=== PATIENT | female | born 1980 | race American Indian/Alaskan Native ===

== ENCOUNTER 2018-01-04 15:41 | Emergency (ER) | payer SELFPAY ==
[2018-01-04 15:57] VITALS: BP 114/70
[2018-01-04 17:54] LABS: Bilirubin,Urine NEG (Negative); Blood,Urine NEG (Negative); Color,Urine Yellow (Yellow); Mucus,Urine FEW /HPF; Protein,Urine <15 mg/dL mg/dL (Negative)
[2018-01-04 17:56] LABS: HCG Qualitative,Urine Negative (Negative)
--- NOTE | 2018-01-04 20:03 | Emergency Department Report ---
ED Dysuria HPI - HPI Chief Complaint: Abdominal Pain Stated Complaint: UTI Time Seen by Provider: 01/04/18 19:31 Duration: 3 Days Location of Discomfort: Suprapubic Severity: Moderate Symptoms: Dysuria: Yes, Frequency: Yes, Suprapubic Pain: Yes, Flank Pain: No, Fever: No, Hematuria: Yes, Abdominal Pain: No, Previous UTI's: No ED Review of Systems ROS: Stated complaint: UTI Other details as noted in HPI Comment: All other systems reviewed and negative ED Past Medical Hx - Past Medical History Hx Diabetes: No Hx Asthma: No - Surgical History Past Surgical History?: Yes Additional Surgical History: - Social History Smoking Status: Never Smoker Substance Use Type: None - Medications Home Medications: Home Medications Medication Instructions Recorded Confirmed Last Taken Type Nitrofurantoin Monohyd/M-Cryst 100 mg PO BID #14 capsule 01/04/18 Unknown Rx [Macrobid 100 mg Capsule] Phenazopyridine [Pyridium] 100 mg PO TID #12 tab 01/04/18 Unknown Rx traMADol [Ultram] 50 mg PO Q6HR PRN #14 tablet 01/04/18 Unknown Rx Dysuria Exam - Exam General: Vital signs noted. No distress. Alert and acting appropriately. Exam: Yes Moist Mucous Membranes, Yes Abdominal Tenderness (suprapubic without rebound or gaurding), No CVA Tenderness, No Rigidity or Guarding Exam: Patient is alert and oriented 3. Lungs clear to auscultation. Patient is no acute distress. Skin is normal. Labs: Lab Results 01/04/18 Range/Units Unknown Urine Color Yellow (Yellow) Urine Turbidity Clear (Clear) Urine pH 6.0 (5.0-7.0) Ur Specific [place] 1.019 (1.003-1.030) Urine Protein <15 mg/dl (Negative) mg/dL Urine Glucose (UA) Neg (Negative) mg/dL Urine Ketones Neg (Negative) mg/dL Urine Blood Neg (Negative) Urine Nitrite Neg (Negative) Urine Bilirubin Neg (Negative) Urine Urobilinogen 2.0 (<2.0) mg/dL Ur Leukocyte Esterase Tr (Negative) Urine WBC (Auto) 18.0 H (0.0-6.0) /HPF Urine RBC (Auto) 4.0 (0.0-6.0) /HPF U Epithel Cells (Auto) 1.0 (0-13.0) /HPF Urine Mucus Few /HPF Urine HCG, Qual Negative (Negative) ED Course Vital Signs 01/04/18 15:45 Temperature 98.5 F Pulse Rate 78 Respiratory 18 Rate Blood Pressure 114/70 O2 Sat by Pulse 99 Oximetry Critical care attestation.: If time is entered above; I have spent that time in minutes in the direct care of this critically ill patient, excluding procedure time. ED Disposition Clinical Impression: Acute cystitis Qualifiers: Hematuria presence: with hematuria Qualified Code(s): N30.01 - Acute cystitis with hematuria Disposition: TO HOME OR SELFCARE Is pt being admited?: No Condition: Stable Instructions: Abdominal Pain (ED), Urinary Tract Infection in Women (ED) Prescriptions: Nitrofurantoin Monohyd/M-Cryst [Macrobid 100 mg Capsule] 100 mg PO BID #14 capsule Phenazopyridine [Pyridium] 100 mg PO TID #12 tab traMADol [Ultram] 50 mg PO Q6HR PRN #14 tablet PRN Reason: Pain Referrals: PRIMARY CARE, [Primary Care Provider] - 3-5 Days
== END 2018-01-04 20:14 | disposition home or self-care (01) ==
LOC: EDBD 15:41 → ED 15:41
DX: N30.00 Acute cystitis without hematuria (principal)
CPT/HCPCS: 81001; 81025; 99283

== ENCOUNTER 2019-04-02 01:11 | Emergency (ER) | payer OTHER ==
--- NOTE | 2019-04-02 02:23 | XRay Report ---
PROCEDURE: XR CHEST ROUTINE 2V TECHNIQUE: PA and lateral chest radiographs were obtained. HISTORY: productive cough chest tightness COMPARISONS: None. FINDINGS: The cardiomediastinal silhouette appears normal. The lungs are clear. The bones and soft tissues are unremarkable. IMPRESSION: No evidence of acute cardiopulmonary disease. This document is electronically signed by Shanta Finch MD., April 02 2019 02:22:09 AM ET
--- NOTE | 2019-04-02 04:15 | Emergency Department Report ---
ED General Adult HPI - General Chief complaint: Sore Throat Stated complaint: THROAT AND CHEST PAIN Time Seen by Provider: 04/02/19 02:48 Source: patient Mode of arrival: Ambulatory Limitations: No Limitations - History of Present Illness Initial comments: Patient is a 38-year-old female who presents the emergency room with complaints of a sore throat that began 3 days ago. she denies any pain with swallowing. She denies any fever. She has also had a cough with mucus production. She denies any congestion, rhinorrhea, or ear pain. she denies any past medical history, allergies medications or daily medications. She denies any sick contacts. [facility] march 28. - Related Data Previous Rx's Medication Instructions Recorded Last Taken Type Nitrofurantoin Monohyd/M-Cryst 100 mg PO BID #14 capsule 01/04/18 Unknown Rx [Macrobid 100 mg Capsule] Phenazopyridine [Pyridium] 100 mg PO TID #12 tab 01/04/18 Unknown Rx traMADol [Ultram] 50 mg PO Q6HR PRN #14 tablet 01/04/18 Unknown Rx Azithromycin [Zithromax Z-SAPNA] 250 mg PO DAILY 5 Days #6 tablet 04/02/19 Unknown Rx Benzonatate [Tessalon Perles] 100 mg PO Q8HR PRN #20 capsule 04/02/19 Unknown Rx Allergies Allergy/AdvReac Type Severity Reaction Status Date / Time No Known Allergies Allergy Unverified 01/04/18 15:58 ED Review of Systems ROS: Stated complaint: THROAT AND CHEST PAIN Other details as noted in HPI Comment: All other systems reviewed and negative ED Past Medical Hx - Past Medical History Previous Medical History?: No Hx Diabetes: No Hx Asthma: No - Surgical History Past Surgical History?: Yes Additional Surgical History: - Social History Smoking Status: Never Smoker - Medications Home Medications: Home Medications Medication Instructions Recorded Confirmed Last Taken Type Nitrofurantoin Monohyd/M-Cryst 100 mg PO BID #14 capsule 01/04/18 Unknown Rx [Macrobid 100 mg Capsule] Phenazopyridine [Pyridium] 100 mg PO TID #12 tab 01/04/18 Unknown Rx traMADol [Ultram] 50 mg PO Q6HR PRN #14 tablet 01/04/18 Unknown Rx Azithromycin [Zithromax Z-SAPNA] 250 mg PO DAILY 5 Days #6 tablet 04/02/19 Unknown Rx Benzonatate [Tessalon Perles] 100 mg PO Q8HR PRN #20 capsule 04/02/19 Unknown Rx ED Physical Exam - General Limitations: No Limitations General appearance: alert, in no apparent distress - Head Head exam: Present: atraumatic, normocephalic - Eye Eye exam: Present: normal appearance, PERRL - ENT ENT exam: Present: mucous membranes moist, other (one small exudate present on the left tonsil, no posterior oropharynx erythema, no tonsillar hypertrophy, uvula is midline ) - Respiratory Respiratory exam: Present: normal lung sounds bilaterally. Absent: respiratory distress, wheezes, rales, rhonchi, stridor, chest wall tenderness, accessory muscle use, decreased breath sounds, prolonged expiratory - Cardiovascular Cardiovascular Exam: Present: regular rate, normal rhythm, normal heart sounds. Absent: systolic murmur, diastolic murmur, rubs, gallop - Neurological Exam Neurological exam: Present: alert, oriented X3 - Psychiatric Psychiatric exam: Present: normal affect, normal mood - Skin Skin exam: Present: warm, dry, intact ED Course Vital Signs 04/02/19 04/02/19 01:34 05:00 Temperature 98.2 F Pulse Rate 73 59 L Respiratory 20 18 Rate Blood Pressure 122/73 Blood Pressure 116/74 [Left] O2 Sat by Pulse 100 98 Oximetry ED Medical Decision Making - Lab Data Lab Results 04/02/19 Range/Units 01:45 Group A Strep Rapid Negative (Negative) - Radiology Data Radiology results: report reviewed Fluoro Time In Minutes: PROCEDURE: XR CHEST ROUTINE 2V TECHNIQUE: PA and lateral chest radiographs were obtained. HISTORY: productive cough chest tightness COMPARISONS: None. FINDINGS: The cardiomediastinal silhouette appears normal. The lungs are clear. The bones and soft tissues are unremarkable. IMPRESSION: No evidence of acute cardiopulmonary disease. This document is electronically signed by Atul Finch MD., April 02 2019 02:22:09 AM ET Transcribed By: GUILLAUME Dictated By: ATUL FINCH MD Electronically Authenticated By: ATUL FINCH MD Signed Date/Time: 04/02/19 0223 - Medical Decision Making Patient is a 38-year-old female who presents the emergency room with complaints of a sore throat that began 3 days ago. she denies any pain with swallowing. She denies any fever. She has also had a cough with mucus production. She denies any congestion, rhinorrhea, or ear pain. she denies any past medical history, allergies medications or daily medications. She denies any sick contacts. [facility] march 28. VSS. on exam: one small exudate present on the left tonsil, no posterior oropharynx erythema, no tonsillar hypertrophy, uvula is midline, lungs are clear BL no w/r/r. CXR: No evidence of acute cardiopulmonary disease. rapid strep is negative. pt given prescription for zpak for pharyngitis/bronchitis and tessalon perles. advised to please take medication as prescribed. May use warm salt water gargles for sore throat. Follow-up with primary care doctor the next 2-3 days. Return to the emergency room for any new or worsening symptoms. Drink plenty of water. - Differential Diagnosis strep throat, tonsillitis, URI, PNA, viral syndrome Critical care attestation.: If time is entered above; I have spent that time in minutes in the direct care of this critically ill patient, excluding procedure time. ED Disposition Clinical Impression: Cough Pharyngitis Qualifiers: Pharyngitis/tonsillitis etiology: unspecified etiology Qualified Code(s): J02.9 - Acute pharyngitis, unspecified Disposition: - TO HOME OR SELFCARE Is pt being admited?: No Does the pt Need Aspirin: No Condition: Stable Instructions: Pharyngitis (ED), Acute Bronchitis (ED) Additional Instructions: Please take medication as prescribed. May use warm salt water gargles for sore throat. Follow-up with primary care doctor the next 2-3 days. Return to the emergency room for any new or worsening symptoms. Drink plenty of water. Prescriptions: Benzonatate [Tessalon Perles] 100 mg PO Q8HR PRN #20 capsule PRN Reason: Cough Azithromycin [Zithromax Z-SAPNA] 250 mg PO DAILY 5 Days #6 tablet Referrals: MATTIE WOODALL MD [Primary Care Provider] - 2-3 Days Forms: Work/School Release Form(ED) Time of Disposition: 04:14 Print Language: LAO
[2019-04-02 05:31] VITALS: BP 116/74
== END 2019-04-02 05:00 | disposition home or self-care (01) ==
LOC: ED 01:11
DX: J02.9 Acute pharyngitis, unspecified (principal); R05 Cough; Z79.899 Other long term (current) drug therapy
CPT/HCPCS: 71046; 87116; 87430; 93005; 93010; 99284

== ENCOUNTER 2020-11-10 14:18 | Emergency (ER) | payer SELFPAY ==
[2020-11-10 14:28] VITALS: BP 114/80
[2020-11-10] MEDS ORDERED: METOCLOPRAMIDE 10 MG TAB PO ONE (14:55)
[2020-11-10] MEDS ORDERED: diphenhydrAMINE 25 MG CAP PO ONE (14:55)
[2020-11-10] MEDS ORDERED: BUTALB/ACETAMINOPHEN/CAFFEINE TAB PO ONE (14:55)
[2020-11-10 15:39] LABS: Bilirubin,Urine NEG (Negative); Blood,Urine NEG (Negative); Color,Urine Yellow (Yellow); Mucus,Urine 2+ /HPF; Protein,Urine <15 mg/dL mg/dL (Negative); Urobilinogen,Urine < 2.0 mg/dL (<2.0)
[2020-11-10 15:43] LABS: HCG Qualitative,Urine Negative (Negative)
--- NOTE | 2020-11-10 16:16 | Emergency Department Report ---
ED General Adult HPI - General Chief complaint: Urogenital-Female Stated complaint: UTI/HEADACHE Time Seen by Provider: 11/10/20 14:31 Source: patient Mode of arrival: Ambulatory Limitations: No Limitations - History of Present Illness Initial comments: pt is a 40 yo female who presents to the ED with c/o a headache around the head in the distribution of a band that began three days ago. she denies any fall or injury. she denies any vision changes, numbness, weakness, gait disturbance, speech disturbance, fever, n/v/d. she states she believes she may have a UTI as her urine has been darker for a week. she denies dysuria, abd pain, abnormal vaginal discharge. denies allergies to meds. she has been taking ibuprofen with some improvement Severity scale (0 -10): 7 - Related Data Previous Rx's Medication Instructions Recorded Last Taken Type Nitrofurantoin Monohyd/M-Cryst 100 mg PO BID #14 capsule 01/04/18 Unknown Rx [Macrobid 100 mg Capsule] Phenazopyridine [Pyridium] 100 mg PO TID #12 tab 01/04/18 Unknown Rx traMADoL [Ultram] 50 mg PO Q6HR PRN #14 tablet 01/04/18 Unknown Rx Azithromycin [Zithromax Z-SAPNA] 250 mg PO DAILY 5 Days #6 tablet 04/02/19 Unknown Rx Benzonatate [Tessalon Perles] 100 mg PO Q8HR PRN #20 capsule 04/02/19 Unknown Rx Butalb/Acetaminophen/Caffeine 1 cap PO Q8HR PRN #10 cap 11/10/20 Unknown Rx [Fioricet 50-300-40 mg CAP] Allergies Allergy/AdvReac Type Severity Reaction Status Date / Time No Known Allergies Allergy Unverified 01/04/18 15:58 ED Review of Systems ROS: Stated complaint: UTI/HEADACHE Other details as noted in HPI Comment: All other systems reviewed and negative ED Past Medical Hx - Past Medical History Previous Medical History?: No Hx Diabetes: No Hx Asthma: No - Surgical History Past Surgical History?: Yes Additional Surgical History: - Social History Smoking Status: Never Smoker Substance Use Type: None - Medications Home Medications: Home Medications Medication Instructions Recorded Confirmed Last Taken Type Nitrofurantoin Monohyd/M-Cryst 100 mg PO BID #14 capsule 01/04/18 Unknown Rx [Macrobid 100 mg Capsule] Phenazopyridine [Pyridium] 100 mg PO TID #12 tab 01/04/18 Unknown Rx traMADoL [Ultram] 50 mg PO Q6HR PRN #14 tablet 01/04/18 Unknown Rx Azithromycin [Zithromax Z-SAPNA] 250 mg PO DAILY 5 Days #6 tablet 04/02/19 Unknown Rx Benzonatate [Tessalon Perles] 100 mg PO Q8HR PRN #20 capsule 04/02/19 Unknown Rx Butalb/Acetaminophen/Caffeine 1 cap PO Q8HR PRN #10 cap 11/10/20 Unknown Rx [Fioricet 50-300-40 mg CAP] ED Physical Exam - General Limitations: No Limitations General appearance: alert, in no apparent distress - Head Head exam: Present: atraumatic, normocephalic - Eye Eye exam: Present: normal appearance, PERRL, EOMI. Absent: periorbital swelling, periorbital tenderness Pupils: Present: normal accommodation - ENT ENT exam: Present: mucous membranes moist - Neck Neck exam: Present: normal inspection, full ROM. Absent: meningismus - Respiratory Respiratory exam: Present: normal lung sounds bilaterally. Absent: respiratory distress, wheezes, rales, rhonchi, stridor, chest wall tenderness, accessory muscle use, decreased breath sounds, prolonged expiratory - Cardiovascular Cardiovascular Exam: Present: regular rate, normal rhythm, normal heart sounds. Absent: systolic murmur, diastolic murmur, rubs, gallop - Neurological Exam Neurological exam: Present: alert, oriented X3, CN II-XII intact, normal gait. Absent: motor sensory deficit - Psychiatric Psychiatric exam: Present: normal affect, normal mood - Skin Skin exam: Present: warm, dry, intact ED Course Vital Signs 11/10/20 14:27 Temperature 98.9 F Pulse Rate 86 Respiratory 18 Rate Blood Pressure 114/80 O2 Sat by Pulse 100 Oximetry ED Medical Decision Making - Lab Data Lab Results 11/10/20 Range/Units 15:28 Urine Color Yellow (Yellow) Urine Turbidity Clear (Clear) Urine pH 5.0 (5.0-7.0) Ur Specific [place] 1.024 (1.003-1.030) Urine Protein <15 mg/dl (Negative) mg/dL Urine Glucose (UA) Neg (Negative) mg/dL Urine Ketones Neg (Negative) mg/dL Urine Blood Neg (Negative) Urine Nitrite Neg (Negative) Urine Bilirubin Neg (Negative) Urine Urobilinogen < 2.0 (<2.0) mg/dL Ur Leukocyte Esterase Neg (Negative) Urine WBC (Auto) 1.0 (0.0-6.0) /HPF Urine RBC (Auto) 1.0 (0.0-6.0) /HPF U Epithel Cells (Auto) 2.0 (0-13.0) /HPF Urine Mucus 2+ /HPF Urine HCG, Qual Negative (Negative) - Medical Decision Making pt is a 40 yo female who presents to the ED with c/o a headache around the head in the distribution of a band that began three days ago. she denies any fall or injury. she denies any vision changes, numbness, weakness, gait disturbance, speech disturbance, fever, n/v/d. she states she believes she may have a UTI as her urine has been darker for a week. she denies dysuria, abd pain, abnormal vaginal discharge. denies allergies to meds. she has been taking ibuprofen with some improvement. Vitals are normal. Patient has no neuro deficits on exam, no meningeal signs, she denies any thunderclap headache. Symptoms to she is describing sounds most consistent with a tension headache. UA is within normal limits. Urine is negative. Patient given Fioricet, Reglan, Benadryl and headache completely improved and she was feeling much better ready go home. Patient given prescription for Fioricet. Advised patient please take medication as prescribed. increase your water intake. follow up with a primary care doctor. return to the emergency room for any new or worsening symptoms. Critical care attestation.: If time is entered above; I have spent that time in minutes in the direct care of this critically ill patient, excluding procedure time. ED Disposition Clinical Impression: Urinary frequency, Dark urine Headache Qualifiers: Headache type: unspecified Headache chronicity pattern: acute headache Intractability: not intractable Qualified Code(s): R51.9 - Headache, unspecified Disposition: DC-01 TO HOME OR SELFCARE Is pt being admited?: No Does the pt Need Aspirin: No Condition: Stable Instructions: Tension Headache, Adult, [id number] Additional Instructions: please take medication as prescribed. increase your water intake. follow up with a primary care doctor. return to the emergency room for any new or worsening symptoms. Prescriptions: Butalb/Acetaminophen/Caffeine [Fioricet 50-300-40 mg CAP] 1 cap PO Q8HR PRN #10 cap PRN Reason: headache Referrals: PRIMARY CAREMD [Primary Care Provider] - 2-3 Days CONCEPCION ZEPEDA MD [Staff Physician] - 2-3 Days [facility] [Provider Group] - 2-3 Days Forms: Work/School Release Form(ED) Time of Disposition: 16:15 Print Language: AZERI
== END 2020-11-10 17:19 | disposition home or self-care (01) ==
LOC: ED 14:18
DX: R35.0 Frequency of micturition (principal); R51.9 Headache, unspecified; R82.998 Other abnormal findings in urine; Z79.899 Other long term (current) drug therapy; Z98.890 Other specified postprocedural states
CPT/HCPCS: 81001; 81025; 99283

== ENCOUNTER 2021-06-18 20:07 | Emergency (ER) | payer BC ==
--- NOTE | 2021-06-18 22:29 | Emergency Department Report ---
ED General Adult HPI - General Chief complaint: Chest Pain Stated complaint: CHEST PAIN Time Seen by Provider: 06/18/21 22:01 Source: patient Mode of arrival: Ambulatory Limitations: No Limitations - History of Present Illness Initial comments: Patient presents to the emergency department with a chief complaint of chest pain has been present for the last 6 to 7 days. Patient states the pain has been continuous in nature but states it became worse today. She states the pain sometimes radiates into her left breast but other than that there is no radia tion. Patient describes the pain is sharp in nature and denies shortness of breath or abdominal pain. Patient denies being a smoker or being on control. Patient denies history of early MIs in her family. -: Sudden, days(s) (6-7) Location: chest Radiation: other (At times to left breast) Severity scale (0 -10): 2 Quality: sharp Consistency: constant Improves with: none Worsens with: none Associated Symptoms: denies other symptoms Treatments Prior to Arrival: none - Related Data Previous Rx's Medication Instructions Recorded Last Taken Type Nitrofurantoin Monohyd/M-Cryst 100 mg PO BID #14 capsule 01/04/18 Unknown Rx [Macrobid 100 mg Capsule] Phenazopyridine [Pyridium] 100 mg PO TID #12 tab 01/04/18 Unknown Rx traMADoL [Ultram] 50 mg PO Q6HR PRN #14 tablet 01/04/18 Unknown Rx Azithromycin [Zithromax Z-SAPNA] 250 mg PO DAILY 5 Days #6 tablet 04/02/19 Unknown Rx Benzonatate [Tessalon Perles] 100 mg PO Q8HR PRN #20 capsule 04/02/19 Unknown Rx Butalb/Acetaminophen/Caffeine 1 cap PO Q8HR PRN #10 cap 11/10/20 Unknown Rx [Fioricet 50-300-40 mg CAP] Allergies Allergy/AdvReac Type Severity Reaction Status Date / Time No Known Allergies Allergy Unverified 01/04/18 15:58 ED Review of Systems ROS: Stated complaint: CHEST PAIN Other details as noted in HPI Comment: All other systems reviewed and negative Constitutional: denies: chills, fever Eyes: denies: eye pain, eye discharge, vision change ENT: denies: ear pain, throat pain Respiratory: denies: cough, shortness of breath, wheezing Cardiovascular: chest pain. denies: palpitations Endocrine: no symptoms reported Gastrointestinal: denies: abdominal pain, nausea, diarrhea Genitourinary: denies: urgency, dysuria, discharge Musculoskeletal: denies: back pain, joint swelling, arthralgia Skin: denies: rash, lesions Neurological: denies: headache, weakness, paresthesias Psychiatric: denies: anxiety, depression Hematological/Lymphatic: denies: easy bleeding, easy bruising ED Past Medical Hx - Past Medical History Previous Medical History?: No Hx Diabetes: No Hx Asthma: No - Surgical History Past Surgical History?: Yes Additional Surgical History: - Social History Smoking Status: Never Smoker Substance Use Type: None - Medications Home Medications: Home Medications Medication Instructions Recorded Confirmed Last Taken Type Nitrofurantoin Monohyd/M-Cryst 100 mg PO BID #14 capsule 01/04/18 Unknown Rx [Macrobid 100 mg Capsule] Phenazopyridine [Pyridium] 100 mg PO TID #12 tab 01/04/18 Unknown Rx traMADoL [Ultram] 50 mg PO Q6HR PRN #14 tablet 01/04/18 Unknown Rx Azithromycin [Zithromax Z-SAPNA] 250 mg PO DAILY 5 Days #6 tablet 04/02/19 Unknown Rx Benzonatate [Tessalon Perles] 100 mg PO Q8HR PRN #20 capsule 04/02/19 Unknown Rx Butalb/Acetaminophen/Caffeine 1 cap PO Q8HR PRN #10 cap 11/10/20 Unknown Rx [Fioricet 50-300-40 mg CAP] ED Physical Exam - General Limitations: No Limitations General appearance: alert, in no apparent distress - Head Head exam: Present: atraumatic, normocephalic - Eye Eye exam: Present: normal appearance, PERRL, EOMI - ENT ENT exam: Present: mucous membranes moist - Neck Neck exam: Present: normal inspection - Respiratory Respiratory exam: Present: normal lung sounds bilaterally. Absent: respiratory distress - Cardiovascular Cardiovascular Exam: Present: regular rate, normal rhythm. Absent: systolic murmur, diastolic murmur, rubs, gallop - GI/Abdominal GI/Abdominal exam: Present: soft, normal bowel sounds. Absent: distended, tenderness - Extremities Exam Extremities exam: Present: normal inspection - Back Exam Back exam: Present: normal inspection - Neurological Exam Neurological exam: Present: alert, oriented X3, CN II-XII intact. Absent: motor sensory deficit - Psychiatric Psychiatric exam: Present: normal affect, normal mood - Skin Skin exam: Present: warm, dry, intact, normal color. Absent: rash ED Course Vital Signs 06/18/21 06/18/21 06/18/21 20:40 20:46 21:00 Pulse Rate 72 73 76 Respiratory 19 22 21 Rate Blood Pressure 109/64 106/68 O2 Sat by Pulse 100 100 100 Oximetry 06/18/21 06/18/21 06/18/21 21:16 21:30 21:46 Pulse Rate 73 76 70 Respiratory 22 23 22 Rate Blood Pressure 109/64 111/64 111/64 O2 Sat by Pulse 100 100 100 Oximetry 06/18/21 06/18/21 06/18/21 22:00 22:16 22:30 Pulse Rate 73 78 70 Respiratory 24 15 20 Rate Blood Pressure 107/67 111/64 107/67 O2 Sat by Pulse 100 100 100 Oximetry 06/18/21 06/18/21 06/18/21 22:46 23:00 23:16 Pulse Rate Respiratory Rate Blood Pressure 107/67 100/60 105/56 O2 Sat by Pulse 100 100 100 Oximetry 06/18/21 06/18/21 23:30 23:46 Pulse Rate Respiratory Rate Blood Pressure 105/56 105/56 O2 Sat by Pulse 100 100 Oximetry ED Medical Decision Making - Lab Data Result diagrams: 06/18/21 22:47 06/18/21 22:47 - EKG Data -: EKG Interpreted by [place] EKG shows normal: sinus rhythm Rate: normal - Radiology Data Radiology results: report reviewed - Medical Decision Making Laboratory values and imaging discussed with the patient and need for follow-up with primary care Critical care attestation.: If time is entered above; I have spent that time in minutes in the direct care of this critically ill patient, excluding procedure time. ED Disposition Clinical Impression: Nonspecific chest pain Disposition: 01 HOME / SELF CARE / HOMELESS Is pt being admited?: No Does the pt Need Aspirin: No Condition: Stable Instructions: Nonspecific Chest Pain, Adult Additional Instructions: Return if worse Referrals: CONCEPCION ZEPEDA MD [Staff Physician] - 3-5 Days Forms: Work/School Release Form(ED) Time of Disposition: 02:03
--- NOTE | 2021-06-18 22:49 | XRay Report ---
CHEST 2 VIEWS INDICATION / CLINICAL INFORMATION: chest pain. COMPARISON: None available. FINDINGS: SUPPORT DEVICES: None. HEART / MEDIASTINUM: No significant abnormality. LUNGS / PLEURA: No significant pulmonary or pleural abnormality. No pneumothorax. ADDITIONAL FINDINGS: No significant additional findings. IMPRESSION: 1. No acute findings. Signer Name: Rhett Abreu MD Signed: 06/18/2021 10:44 PM Workstation Name: [id number]
[2021-06-18 23:25] LABS: Basophils # (Auto) 0.1 K/mm3 (0.0-0.1); Eosinophils # (Auto) 0.2 K/mm3 (0.0-0.4); Eosinophils % (Auto) 3.9 % (0.0-4.3); Hematocrit 22.4 % (30.3-42.9); Hemoglobin 6.6 gm/dl (10.1-14.3); Lymphocytes # (Auto) 1.9 K/mm3 (1.2-5.4); Lymphocytes % (Auto) 37.8 % (13.4-35.0); Mean Corpuscular HGB Conc 30 % (30-34); Monocytes # (Auto) 0.5 K/mm3 (0.0-0.8); Monocytes % (Auto) 9.5 % (0.0-7.3); Platelet Count 221 K/mm3 (140-440); Red Blood Count 3.53 M/mm3 (3.65-5.03); Red Cell Distribution Width 19.5 % (13.2-15.2)
[2021-06-18 23:26] LABS: Mean Corpuscular Volume 63 fl (79-97)
[2021-06-18 23:53] LABS: Alanine Aminotransferase 20 units/L (7-56); Blood Urea Nitrogen 7 mg/dL (7-17); Calcium 8.3 mg/dL (8.4-10.2); Hemolysis Index 0
[2021-06-18 23:55] LABS: BUN/Creatinine Ratio 10
--- NOTE | 2021-06-19 01:56 | Cat Scan Report ---
CTA CHEST WITH CONTRAST INDICATION / CLINICAL INFORMATION: Chest pain with an elevated D-dimer. TECHNIQUE: Axial CT images were obtained through the chest after injection of IV contrast. 3 plane NV P and/or 3D reconstructions were produced. All CT scans at this location are performed using CT dose reduction for ALARA by means of automated exposure control. COMPARISON: None available. FINDINGS: The pulmonary arteries are patent without filling defect or evidence for PTE. The visualized portions of the upper abdomen are unremarkable. Extrarenal pelvises are seen bilaterally. Minimal interstitia l prominence adjacent to the fissure in the left upper lung posteriorly. No other focal consolidation is seen. No pneumothorax. No large effusion. Small mediastinal nodes. There is anterior mediastinal node measuring 8 mm. No acute bone findings are seen. Heart is enlarged IMPRESSION: 1. No CT evidence for pulmonary embolism. 2. Cardiomegaly. Minimal increased interstitial prominence within the left upper lung adjacent to the fissure. No other focal consolidation or pleural effusion. 3. Mildly prominent mediastinal paratracheal nodes, nonspecific Signer Name: Rhett Abreu MD Signed: 06/19/2021 1:52 AM Workstation Name: [id number]
[2021-06-19 02:47] VITALS: BP 104/60
--- NOTE | 2021-06-19 13:34 | Electrocardiograph Report ---
[facility] Test Date: 2021-06-18 Test Time: 20:24:59 Pat Name: FELICIA STEWARD Department: Room: Gender: F [employer]: [place] : 1980 Requested By: ABBIE HOLDER Order Number: [id number] Reading MD: Angella Harrison Measurements Intervals [place] Rate: 75 P: 57 OR: 159 QRS: 51 QRSD: 93 T: 33 QT: 396 QTc: 442 Interpretive Statements Sinus rhythm No previous ECG available for comparison Electronically Signed On 06-19-2021 13:33:51 EDT by Angella Harrison
== END 2021-06-19 02:20 | disposition home or self-care (01) ==
LOC: ED 20:07
DX: R07.89 Other chest pain (principal); Z98.890 Other specified postprocedural states
CPT/HCPCS: 36415; 71046; 71275; 80053; 84484; 84702; 85025; 85379; 85610; 85730; 93005; 99284; Q9967